=== PATIENT | male | born 1940 | race Caucasian/White ===

== ENCOUNTER 2019-02-06 21:04 | Observation (INO) ==
[2019-02-06 22:25] LABS: Basophils % 0.4 %; Eosinophils # 0.1 K/mcL (0.0-0.6); Eosinophils % 0.9 %; Hematocrit 33.9 % (37.5-50.1); Hemoglobin 10.9 g/dL (12.9-16.9); Immature Granulocytes % 0.6 % (0-4); Lymphocytes # 2.3 K/mcL (0.6-4.6); Lymphocytes % 21.5 %; Mean Corpuscular HGB Conc 32.2 g/dL (31.6-35.5); Mean Corpuscular Hemoglobin 29.1 pg (28.0-33.3); Mean Corpuscular Volume 90.6 fL (83.0-100.0); Mean Platelet Volume 10.5 fL (9.4-12.4); Monocytes % 9.7 %; Neutrophils # 7.1 K/mcL (1.6-8.9); Platelet Count 271 K/mcL (140-400); Red Blood Count 3.74 M/mcL (4.19-5.50); Red Cell Distribution Width 13.3 % (11.5-14.5); Segmented Neutrophils % 66.9 %; White Blood Count 10.6 K/mcL (4.3-11.1)
[2019-02-06 22:28] LABS: VBG Ionized Calcium 1.95 mmol/L (1.15-1.35)
[2019-02-06 22:47] LABS: Magnesium 1.7 mg/dL (1.6-2.6); Phosphorous 2.2 mg/dL (2.7-4.5)
[2019-02-06 22:53] LABS: Calcium 14.4 mg/dL (8.6-10.3); Potassium 3.9 mEq/L (3.5-5.1)
[2019-02-06] MEDS: 0.9 % Sodium Chloride 1,000 ML IVC SCH (23:45)
--- NOTE | 2019-02-06 23:55 | Emergency Department Note ---
Disposition Clinical Impression: Hypercalcemia Disposition: Admitted As Inpatient Condition: Fair Time of Disposition: 01:07 Recheck wound or abnormal lab - General Chief Complaint: ED Recheck/Abnormal Lab/Rx Stated Complaint: elevated calcium levels Time Seen by Provider: 02/06/19 22:58 Source: patient Limitations: no limitations Nursing Notes Reviewed: Yes Vital Signs Reviewed: Yes - History of Present Illness HPI Narrative: 78 yo male with past medical history of hypertension presents to the emergency department with the complaint of an abnormal outpatient lab. Patient states he was contacted today with an elevated calcium level. He had remote history of elevation calcium several years ago when his calcium was 12 but it went down on its own at that time. Several days ago he had a calcium drawn that was 14.5 and had it repeated today, and it went up even higher today. He was told to come into the emergency room right away. Patient denies any chest pain, shortness of breath, abdominal pain, nausea, vomiting, diarrhea, constipation. He does admit to a 10 pound weight loss since September given that he has had increased oral intake. - Related Data Home Medications Medication Instructions Recorded Confirmed Lisinopril-HCTZ 20-12.5 [Prinzide 1 tab PO DAILY 06/23/17 02/06/19 20-12.5] Multivit-Minerals/FA/Lycopene [Eq 1 tab PO DAILY 06/23/17 02/06/19 One Daily Men's Tablet] Tamsulosin HCl [Flomax] 0.4 mg PO DAILY 06/23/17 02/06/19 amLODIPine [Norvasc] 5 mg PO DAILY 06/23/17 02/06/19 Allergies Allergy/AdvReac Type Severity Reaction Status Date / Time codeine Allergy Hives Verified 02/06/19 22:56 contrast dye Allergy Severe Hives Uncoded 02/06/19 22:56 All systems ED: reviewed and negative except as stated. Review of Systems: As Per HPI Constitutional: Denies: fever, weakness Cardiovascular: Denies: chest pain, palpitations, dyspnea on exertion Respiratory: Denies: cough, dyspnea, wheezes Gastrointestinal: Denies: abdominal pain, nausea, vomiting, diarrhea, constipation Genitourinary: Denies: dysuria, hematuria Musculoskeletal: Denies: back pain, neck pain Integumentary: Denies: rash Neurological: Denies: headache Endocrine: Denies: fatigue Past Medical History - Past Medical History Attestation: Yes The following information was validated with the patient. Source: patient Medical history: Reports: hypertension, other - Social History Smoking Status: Never smoker Smokeless Tobacco Status: No Alcohol use: Reports: unknown Drug use: Reports: none Physical Exam - General Limitations: no limitations General appearance: alert, in no apparent distress - Head Head exam: atraumatic, normocephalic - Eye Eye exam: Present: normal appearance, EOMI - ENT ENT exam: normal exam, normal oropharynx - Neck Neck exam: Present: normal inspection. Absent: tenderness, lymphadenopathy - Chest Chest inspection: Present: normal inspection. Absent: tenderness, rash - Respiratory Respiratory exam: Present: normal lung sounds bilaterally. Absent: wheezes - Cardiovascular Cardiovascular exam: Present: regular rate, normal rhythm - Abdominal Exam Abdominal exam: Present: soft, Non-Tender. Absent: distention, guarding, rebound, rigidity - Extremities Exam Extremities exam: Present: normal inspection. Absent: tenderness, pedal edema - Neurological Exam Neurological exam: Present: alert, oriented X3 - Psychiatric Psychiatric exam: Present: normal affect, normal mood - Skin Skin exam: Present: warm, dry, intact Course Vital Signs Temperature 98.1 F 02/06/19 21:19 Pulse Rate 78 02/06/19 21:19 Respiratory Rate 20 02/06/19 21:19 Blood Pressure 122/71 02/06/19 21:19 O2 Sat by Pulse Oximetry 96 02/06/19 21:19 Temperature 98.1 F 02/06/19 21:19 Pulse Rate 75 02/07/19 01:00 Respiratory Rate 20 02/07/19 01:00 Blood Pressure 146/74 02/07/19 01:00 O2 Sat by Pulse Oximetry 99 02/07/19 01:00 Oxygen Delivery Oxygen Delivery Room Air Recheck wound or abnormal lab - MDM Narrative Medical decision making narrative: Patient presents with abnormal outpatient lab. Repeat labs done in triage show an elevated calcium of 14.4 with an ionized calcium of 1.95. Patient's other labs are at his baseline. EKG does not demonstrate any acute changes. We will obtain a chest x-ray and administered 2 L of fluids to the patient and then attempt to admit this patient the hospitalist. 0106 - patient's chest x-ray does not demonstrate any acute abdominal processes. We will order parathyroid hormone, TSH and parathyroid related peptide and admit the patient the hospital at this time. Pt has been accepted by Dr. Duarte. - Medical Records Medical records reviewed: Yes I reviewed the patient's medical records. - Lab Data Lab results reviewed: Yes I reviewed the patient's lab results. Result diagrams: 02/07/19 06:37 02/07/19 06:37 Lab Results 02/06/19 02/06/19 02/06/19 Range/Units 21:44 21:44 21:44 WBC 10.6 (4.3-11.1) K/mcL RBC 3.74 L (4.19-5.50) M/mcL Hgb 10.9 L (12.9-16.9) g/dL Hct 33.9 L (37.5-50.1) % MCV 90.6 (83.0-100.0) fL MCH 29.1 (28.0-33.3) pg MCHC 32.2 (31.6-35.5) g/dL RDW 13.3 (11.5-14.5) % Plt Count 271 (140-400) K/mcL MPV 10.5 (9.4-12.4) fL Immature Gran % 0.6 (0-4) % Seg Neutrophils % 66.9 % Lymphocytes % 21.5 % Monocytes % 9.7 % Eosinophils % 0.9 % Basophils % 0.4 % Neutrophils # 7.1 (1.6-8.9) K/mcL Lymphocytes # 2.3 (0.6-4.6) K/mcL Monocytes # 1.0 (0.0-1.3) K/mcL Eosinophils # 0.1 (0.0-0.6) K/mcL Basophils # 0.0 (0.0-0.2) K/mcL Sodium 136 (136-145) mEq/L Potassium 3.9 (3.5-5.1) mEq/L Chloride 103 (98-107) mEq/L Carbon Dioxide 28 (23-29) mEq/L BUN 31 H (8-23) mg/dL Creatinine 1.69 H (0.70-1.30) mg/dL Est GFR ( Amer) 48 L (> 60) Est GFR (Non-Af Amer) 39 L (> 60) BUN/Creatinine Ratio 18 (6-26) Glucose 107 H (70-105) mg/dL Calculated Osmolality 289 (280-300) Calcium 14.4 H* (8.6-10.3) mg/dL Venous Ioniz Calcium (1.15-1.35) mmol/L Phosphorus 2.2 L (2.7-4.5) mg/dL Magnesium 1.7 (1.6-2.6) mg/dL 02/06/19 Range/Units 22:26 WBC (4.3-11.1) K/mcL RBC (4.19-5.50) M/mcL Hgb (12.9-16.9) g/dL Hct (37.5-50.1) % MCV (83.0-100.0) fL MCH (28.0-33.3) pg MCHC (31.6-35.5) g/dL RDW (11.5-14.5) % Plt Count (140-400) K/mcL MPV (9.4-12.4) fL Immature Gran % (0-4) % Seg Neutrophils % % Lymphocytes % % Monocytes % % Eosinophils % % Basophils % % Neutrophils # (1.6-8.9) K/mcL Lymphocytes # (0.6-4.6) K/mcL Monocytes # (0.0-1.3) K/mcL Eosinophils # (0.0-0.6) K/mcL Basophils # (0.0-0.2) K/mcL Sodium (136-145) mEq/L Potassium (3.5-5.1) mEq/L Chloride (98-107) mEq/L Carbon Dioxide (23-29) mEq/L BUN (8-23) mg/dL Creatinine (0.70-1.30) mg/dL Est GFR ( Amer) (> 60) Est GFR (Non-Af Amer) (> 60) BUN/Creatinine Ratio (6-26) Glucose (70-105) mg/dL Calculated Osmolality (280-300) Calcium (8.6-10.3) mg/dL Venous Ioniz Calcium 1.95 H (1.15-1.35) mmol/L Phosphorus (2.7-4.5) mg/dL Magnesium (1.6-2.6) mg/dL - Radiology Data Radiology results reviewed: Yes I reviewed the patient's radiology results. - EKG Data EKG attestation: Yes I reviewed and interpreted this EKG. 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 No signs of ST segment elevation. Minor ST segment depression that is disc ordant with the QRS complexes and does not meet sgarbossa criteria. Old EKG dated 06/13/2017 shows similar widening of the QRS QT complexes with similar morphology as to current EKG. Attestation Statement - Attestation Attestation: I have seen this patient with the resident physician, I have personally evaluated this patient. I had reviewed the chart and document dictation by the resident physician and aM in agreement with the information documented by the resident physician. Please see documentation by the resident physician for complete chart including past medical history, family medical history, review of systems, current history and physical and laboratory and imaging studies. I was present for all procedures, provided direct supervision for all procedures, was present for the entirety of all procedures and provided direct guidance during the procedures. Please see documentation by the resident physician for any procedures performed. I have reviewed all interpretations of EKGs, and reviewed all EKGs performed on patient's as well. I have also reviewed reports of imaging as provided by radiology.
--- NOTE | 2019-02-07 00:51 | Emergency Department Note ---
Disposition Clinical Impression: Hypercalcemia Disposition: Admitted As Inpatient Condition: Fair Forms: ED Satisfaction Letter Time of Disposition: 00:51 General Adult HPI - General Chief complaint: ED Recheck/Abnormal Lab/Rx Stated complaint: elevated calcium levels Time Seen by Provider: 02/06/19 22:58 Source: patient Limitations: no limitations Nursing Notes Reviewed: Yes Vital Signs Reviewed: Yes - History of Present Illness Pain Scale: 5 - Related Data Home Medications Medication Instructions Recorded Confirmed Lisinopril-HCTZ 20-12.5 [Prinzide 1 tab PO DAILY 06/23/17 02/06/19 20-12.5] Multivit-Minerals/FA/Lycopene [Eq 1 tab PO DAILY 06/23/17 02/06/19 One Daily Men's Tablet] Tamsulosin HCl [Flomax] 0.4 mg PO DAILY 06/23/17 02/06/19 amLODIPine [Norvasc] 5 mg PO DAILY 06/23/17 02/06/19 Allergies Allergy/AdvReac Type Severity Reaction Status Date / Time codeine Allergy Hives Verified 02/06/19 22:56 contrast dye Allergy Severe Hives Uncoded 02/06/19 22:56 Constitutional: Denies: fever, weakness Cardiovascular: Denies: chest pain, palpitations, dyspnea on exertion Respiratory: Denies: cough, dyspnea, wheezes Gastrointestinal: Denies: abdominal pain, nausea, vomiting, diarrhea, c onstipation Genitourinary: Denies: dysuria, hematuria Musculoskeletal: Denies: back pain, neck pain Integumentary: Denies: rash Neurological: Denies: headache Endocrine: Denies: fatigue Past Medical History - Past Medical History Medical history: Reports: hypertension, other - Social History Smoking Status: Never smoker Smokeless Tobacco Status: No Alcohol use: Reports: unknown Drug use: Reports: none Physical Exam - General Limitations: no limitations General appearance: alert, in no apparent distress Course Vital Signs Temperature 98.1 F 02/06/19 21:19 Pulse Rate 78 02/06/19 21:19 Respiratory Rate 20 02/06/19 21:19 Blood Pressure 122/71 02/06/19 21:19 O2 Sat by Pulse Oximetry 96 02/06/19 21:19 Temperature 98.1 F 02/06/19 21:19 Pulse Rate 89 02/06/19 23:31 Respiratory Rate 20 02/06/19 23:31 Blood Pressure 129/80 02/06/19 23:31 O2 Sat by Pulse Oximetry 98 02/06/19 23:31 Oxygen Delivery Oxygen Delivery Room Air Medical Decision Making - Lab Data Result diagrams: 02/06/19 21:44 02/06/19 21:44 Lab Results 02/06/19 02/06/19 02/06/19 Range/Units 21:44 21:44 21:44 WBC 10.6 (4.3-11.1) K/mcL RBC 3.74 L (4.19-5.50) M/mcL Hgb 10.9 L (12.9-16.9) g/dL Hct 33.9 L (37.5-50.1) % MCV 90.6 (83.0-100.0) fL MCH 29.1 (28.0-33.3) pg MCHC 32.2 (31.6-35.5) g/dL RDW 13.3 (11.5-14.5) % Plt Count 271 (140-400) K/mcL MPV 10.5 (9.4-12.4) fL Immature Gran % 0.6 (0-4) % Seg Neutrophils % 66.9 % Lymphocytes % 21.5 % Monocytes % 9.7 % Eosinophils % 0.9 % Basophils % 0.4 % Neutrophils # 7.1 (1.6-8.9) K/mcL Lymphocytes # 2.3 (0.6-4.6) K/mcL Monocytes # 1.0 (0.0-1.3) K/mcL Eosinophils # 0.1 (0.0-0.6) K/mcL Basophils # 0.0 (0.0-0.2) K/mcL Sodium 136 (136-145) mEq/L Potassium 3.9 (3.5-5.1) mEq/L Chloride 103 (98-107) mEq/L Carbon Dioxide 28 (23-29) mEq/L BUN 31 H (8-23) mg/dL Creatinine 1.69 H (0.70-1.30) mg/dL Est GFR ( Amer) 48 L (> 60) Est GFR (Non-Af Amer) 39 L (> 60) BUN/Creatinine Ratio 18 (6-26) Glucose 107 H (70-105) mg/dL Calculated Osmolality 289 (280-300) Calcium 14.4 H* (8.6-10.3) mg/dL Venous Ioniz Calcium (1.15-1.35) mmol/L Phosphorus 2.2 L (2.7-4.5) mg/dL Magnesium 1.7 (1.6-2.6) mg/dL 02/06/19 Range/Units 22:26 WBC (4.3-11.1) K/mcL RBC (4.19-5.50) M/mcL Hgb (12.9-16.9) g/dL Hct (37.5-50.1) % MCV (83.0-100.0) fL MCH (28.0-33.3) pg MCHC (31.6-35.5) g/dL RDW (11.5-14.5) % Plt Count (140-400) K/mcL MPV (9.4-12.4) fL Immature Gran % (0-4) % Seg Neutrophils % % Lymphocytes % % Monocytes % % Eosinophils % % Basophils % % Neutrophils # (1.6-8.9) K/mcL Lymphocytes # (0.6-4.6) K/mcL Monocytes # (0.0-1.3) K/mcL Eosinophils # (0.0-0.6) K/mcL Basophils # (0.0-0.2) K/mcL Sodium (136-145) mEq/L Potassium (3.5-5.1) mEq/L Chloride (98-107) mEq/L Carbon Dioxide (23-29) mEq/L BUN (8-23) mg/dL Creatinine (0.70-1.30) mg/dL Est GFR ( Amer) (> 60) Est GFR (Non-Af Amer) (> 60) BUN/Creatinine Ratio (6-26) Glucose (70-105) mg/dL Calculated Osmolality (280-300) Calcium (8.6-10.3) mg/dL Venous Ioniz Calcium 1.95 H (1.15-1.35) mmol/L Phosphorus (2.7-4.5) mg/dL Magnesium (1.6-2.6) mg/dL Attestation Statement - Attestation Attestation: I have seen this patient with the resident physician, I have personally evaluated this patient. I had reviewed the chart and document dictation by the resident physician and aM in agreement with the information documented by the resident physician. Please see documentation by the resident physician for complete chart including past medical history, family medical history, review of systems, current history and physical and laboratory and imaging studies. I was present for all procedures, provided direct supervision for all procedures, was present for the entirety of all procedures and provided direct guidance during the procedures. Please see documentation by the resident physician for any procedures performed. I have reviewed all interpretations of EKGs, and reviewed all EKGs performed on patient's as well. I have also reviewed reports of imaging as provided by radiology. Patient presented emergency department with hypercalcemia. Patient states that he had outpatient labs that showed his calcium was 14.5, his doctor told him that he looked too well for that so wanted to get repeated, so was repeated and he was called tonight and told to go to the ER because his calcium was still significantly elevated at over 14.5. Patient states he really does not feel that bad. He denies muscle cramps denies back pain denies abdominal pain denies nausea vomiting denies muscle spasm denies confusion denies hallucinations denies any other new symptoms apart from some slight increased tinnitus in his left ear more than his baseline. Denies any abdominal pain nausea vomiting fevers or chills. He states that he has had high calcium is high as 12 in the past but then went back down to 11.1 and he has not had any problems with this. He does report he has had some difficulty gaining weight recently states that he had lost some weight that he ate pastries every day, and gain some weight back but then he lost some weight again. He denies night sweats denies fevers. Denies any other acute concerns. On exam he is alert and oriented 3 in no acute distress cranial nerves are i ntact ears are clear bilaterally oropharynx is normal. No thyroid masses palpable. Lungs are clear heart is regular abdomen is soft and nontender skin is warm dry without rash or petechiae no muscle spasms. Normal gait. Repeat labs do confirm a calcium of 14 with an ionized calcium of 1.95 mild creatinine elevation of 1.68 however this is stable from baseline. No other significant abnormality. He was given 2 L of IV fluids, we also sent TSH, and parathyroid hormone studies, to be followed up on as an inpatient. He has no significant symptoms had this time, therefore I do not feel there is any indication for Lasix, bisphosphonates, calcitonin here in the emergency department he does need further evaluation and because of the significant elevation of his calcium, he will be admitted to the hospital for further evaluation and management.
[2019-02-07] MEDS: 0.9 % Sodium Chloride 1,000 ML IVC SCH ×3 (01:02→18:26)
[2019-02-07 07:23] LABS: Hematocrit 32.6 % (37.5-50.1); Hemoglobin 10.2 g/dL (12.9-16.9); Mean Corpuscular HGB Conc 31.3 g/dL (31.6-35.5); Mean Corpuscular Hemoglobin 28.3 pg (28.0-33.3); Mean Corpuscular Volume 90.6 fL (83.0-100.0); Mean Platelet Volume 10.7 fL (9.4-12.4); Platelet Count 245 K/mcL (140-400); Red Cell Distribution Width 13.2 % (11.5-14.5); White Blood Count 12.3 K/mcL (4.3-11.1)
[2019-02-07 08:03] LABS: Albumin 3.7 g/dL (3.5-5.7); Albumin/Globulin Ratio 1.8 (1.1-2.2); Bilirubin,Total 0.3 mg/dL (0.3-1.0); Calcium 13.6 mg/dL (8.6-10.3); Globulin 2.1 g/dL (2.4-3.5); Potassium 4.3 mEq/L (3.5-5.1); Total Protein 5.8 g/dL (6.4-8.9)
[2019-02-07] MEDS ORDERED: Calcitonin-Salmon, Synthetic 400 UNIT/2 ML VIAL SQ ONE ×3 (08:43→21:00)
[2019-02-07] MEDS ORDERED: 0.9 % Sodium Chloride 1,000 ML IVC SCH ×2 (08:45→22:30)
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
[2019-02-07] MEDS ORDERED: Acetaminophen 325 MG TABLET PO PRN (10:32)
[2019-02-07] MEDS ORDERED: Naloxone 0.4 MG/ML INJ IVP PRN (10:32)
[2019-02-07] MEDS ORDERED: Ondansetron ODT 4 MG TAB.RAPDIS SL PRN (10:32)
[2019-02-07] MEDS ORDERED: 0.9 % Sodium Chloride 1,000 ML IVC ONE (10:53)
[2019-02-07] MEDS: amLODIPine 5 MG TABLET PO SCH (12:34)
[2019-02-07 15:27] LABS: Bilirubin,Urine Negative (Negative); Blood,Urine Negative (Negative); Clarity,Urine Clear (Clear); Color,Urine Yellow (Yellow); Glucose,Urine (UA) Normal (Normal); Ketones,Urine Negative (Negative); Leukocyte Esterase,Urine Negative (Negative); Nitrite,Urine Negative (Negative); PH,Urine 7.5 pH Units (5.0-8.0); Protein,Urine Negative (Neg-Trace); Specific Gravity,Urine 1.025 (1.010-1.025); Urobilinogen,Urine Normal (Normal)
[2019-02-07 18:23] LABS: BUN/Creatinine Ratio 17 (6-26); Blood Urea Nitrogen 23 mg/dL (8-23); Calcium 12.3 mg/dL (8.6-10.3); Carbon Dioxide 25 mEq/L (23-29); Chloride 113 mEq/L (98-107); Glucose 102 mg/dL (70-105); Osmolality,Calculated 292 (280-300); Sodium 139 mEq/L (136-145); eGFR For African Americans > 60 (> 60); eGFR For Non-African Americans 52 (> 60)
[2019-02-07] MEDS: *HR* Heparin 5,000 UNIT/ML VIAL SQ SCH (18:24)
[2019-02-08] MEDS: *HR* Heparin 5,000 UNIT/ML VIAL SQ SCH (05:13)
[2019-02-08 06:51] LABS: Basophils % 0.4 %; Eosinophils # 0.2 K/mcL (0.0-0.6); Eosinophils % 1.9 %; Hematocrit 31.2 % (37.5-50.1); Hemoglobin 9.9 g/dL (12.9-16.9); Immature Granulocytes % 0.4 % (0-4); Lymphocytes # 1.9 K/mcL (0.6-4.6); Lymphocytes % 19.9 %; Mean Corpuscular HGB Conc 31.7 g/dL (31.6-35.5); Mean Corpuscular Hemoglobin 29.7 pg (28.0-33.3); Mean Corpuscular Volume 93.7 fL (83.0-100.0); Mean Platelet Volume 10.6 fL (9.4-12.4); Monocytes % 10.1 %; Neutrophils # 6.4 K/mcL (1.6-8.9); Platelet Count 223 K/mcL (140-400); Red Blood Count 3.33 M/mcL (4.19-5.50); Red Cell Distribution Width 13.3 % (11.5-14.5); Segmented Neutrophils % 67.3 %; White Blood Count 9.5 K/mcL (4.3-11.1)
[2019-02-08 08:27] LABS: BUN/Creatinine Ratio 15 (6-26); Blood Urea Nitrogen 20 mg/dL (8-23); Calcium 11.4 mg/dL (8.6-10.3); Carbon Dioxide 21 mEq/L (23-29); Chloride 112 mEq/L (98-107); Glucose 98 mg/dL (70-105); Magnesium 1.6 mg/dL (1.6-2.6); Osmolality,Calculated 289 (280-300); Phosphorous 1.7 mg/dL (2.7-4.5); Potassium 4.1 mEq/L (3.5-5.1); Sodium 138 mEq/L (136-145); eGFR For African Americans > 60 (> 60); eGFR For Non-African Americans 53 (> 60)
[2019-02-08] MEDS: amLODIPine 5 MG TABLET PO SCH (09:11)
[2019-02-08] MEDS ORDERED: Calcitonin-Salmon, Synthetic 400 UNIT/2 ML VIAL SQ ONE (10:30)
[2019-02-08 11:56] VITALS: BP 139/72
--- NOTE | 2019-02-08 12:36 | Discharge Summary ---
- NOTES TO OUTPATIENT PROVIDER Notes to Outpatient Provider: Patient was hospitalized here after being sent by his primary care provider for hypercalcemia. His calcium level was 14.4. His phosphorus level was 2.2. Workup done here showed an elevated PTH level of 416. Patient received calcitriol and IV fluids. He did have acute kidney injury on arrival and this has responded to IV fluids. His creatinine is now back to baseline. His calcium levels have also improved to 11.4. He is clinically stable to be discharged home and we will arrange for him to follow up with nephrology for further management. Patient did have CT scan of his chest done which did not show any lymphadenopathy or signs of any metastatic disease. We have stopped his hydrochlorothiazide as it can cause hypercalcemia. At this time we do not have a clear cause of his hypercalcemia besides medications and underlying chronic kidney disease. Parathyroid related peptide levels have been sent and will need to be followed. Orders not resulted at time of discharge: Pending orders 02/06/19 21:27 EKG [ECG 12 lead ECG] [ECG] Stat 02/07/19 01:07 Parathormone Related Peptide Stat Date of Encounter: 02/08/19 Time of Encounter: 12:31 - Discharge Diagnosis (1) Hypercalcemia Priority: Primary Status: Acute (2) Acute kidney injury superimposed on chronic kidney disease Priority: Secondary Status: Acute (3) DVT prophylaxis Priority: Secondary Status: Acute (4) Hypertension Priority: Secondary Status: Acute Qualifiers: Hypertension type: essential hypertension Qualified Code(s): I10 - Essential (primary) hypertension Hospital course: Mr. Piedra is a 78 year old male Patient was hospitalized here after being sent by his primary care provider for hypercalcemia. His calcium level was 14.4. His phosphorus level was 2.2. Workup done here showed an elevated PTH level of 416. Patient received calcitriol and IV fluids. He did have acute kidney injury on arrival and this has responded to IV fluids. His creatinine is now back to baseline. His calcium levels have also improved to 11.4. He is clinically stable to be discharged home and we will arrange for him to follow up with nephrology for further management. Patient did have CT scan of his chest done which did not show any lymphadenopathy or signs of any metastatic disease. We have stopped his hydrochlorothiazide as it can cause hypercalcemia. At this time we do not have a clear cause of his hypercalcemia besides medications and underlying chronic kidney disease. Parathyroid related peptide levels have been sent and will need to be followed. Discharge discussed with: patient - Time Spent with Patient Total time spent providing and/or coordinating discharge services: Time spent: Greater than 30 minutes (32 min) - Discharge Medications Prescriptions: New Lisinopril [Zestril] 20 mg PO DAILY #30 tablet Continued Tamsulosin HCl [Flomax] 0.4 mg PO DAILY Multivit-Minerals/FA/Lycopene [Eq One Daily Men's Tablet] 1 tab PO DAILY amLODIPine [Norvasc] 5 mg PO DAILY Finasteride [Proscar] 5 mg PO DAILY Discontinued Lisinopril-HCTZ 20-12.5 [Prinzide 20-12.5] 1 tab PO DAILY Home Medications: Multivit-Minerals/FA/Lycopene [Eq One Daily Men's Tablet] 1 tab PO DAILY 06/23/17 [History] Tamsulosin HCl [Flomax] 0.4 mg PO DAILY 06/23/17 [History] amLODIPine [Norvasc] 5 mg PO DAILY 06/23/17 [History] Finasteride [Proscar] 5 mg PO DAILY 02/07/19 [History] Lisinopril [Zestril] 20 mg PO DAILY #30 tablet 02/08/19 [Rx] Allergies/Adverse Reactions: Allergy/AdvReac Type Severity Reaction Status Date / Time codeine Allergy Hives, Verified 02/07/19 20:26 Nausea contrast dye Allergy Severe Hives, Uncoded 02/07/19 20:26 Swelling Date of admission: 02/07/19 01:25 Primary care physician: Rhiannon Marcus CNP Discharging clinician: Alfredo Guzman Anticipated date of discharge: 02/08/19 - Constitutional Vitals: Temp Pulse Resp BP Pulse Ox 97.7 F 62 17 139/72 97 02/08/19 11:51 02/08/19 11:51 02/08/19 11:51 02/08/19 11:51 02/08/19 11:51 General appearance: Present: A&O X 3, pleasant, no acute distress, answers questions appropriately Exam: General: Patient is alert, no acute distress, oriented x 3 Respiratory: Good respiratory effort. Normal breath sounds. No wheezing or crackles. Cardiovascular: Regular rate and rhythm. s1 and s2 normal No clicks, rubs, gallops, or murmurs. No pedal edema Abdomen: Abdomen is soft, nontender. Bowel sounds are present Musculoskeletal: Spontaneously moving all extremities Skin: warm, dry, intact. Neuro: Alert oriented x 3 normal cranial nerves, no focal deficits - Patient Status Disposition: Home, Self-Care Condition: Good Functional capacity at discharge: independent ambulation Overall status at discharge: patient is progressing back to baseline - Ambulatory Orders Ambulatory Orders: Basic Metabolic Panel [CHEM] Time Frame: 1 Week, Facility: [facility], Location: Lab - Discharge Instructions Instructions: Chronic Hypertension (DC), Acute Kidney Injury (DC) Follow Up With: Rhiannon Marcus CNP [Primary Care Provider] - (in 1 week) Carole Dodson MD [Partnered Physician] - (within 1 week for follow up) - Diet and Activity Activity: increase activity as tolerated Diet: advance to your usual diet, low fat, low cholesterol, low salt diet
--- NOTE | 2019-02-09 13:11 | Electrocardiograph Report ---
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
== END 2019-02-08 14:12 | disposition home or self-care (01) ==
LOC: 2ANU 21:04 → EMEROOARM 21:04 → 2ANU 02-07 02:27
PROVIDERS: ADMIT Family Medicine; ATTEND Family Medicine